=== PATIENT | male | born 1970 | race Native Hawaiian/Other Pacific Islander ===

== ENCOUNTER 2020-01-06 10:55 | Outpatient (REF) | payer OTHER, SELFPAY | END 2020-01-06 10:56 | disposition home or self-care (01) | LOC: HO.LAB 10:55 | PROVIDERS: PCP Internal Medicine; Visit Provider Internal Medicine | DX: Z20.828 Contact with and (suspected) exposure to other viral communicable diseases (principal) | CPT/HCPCS: 87635 ==

== ENCOUNTER 2020-04-27 09:52 | Emergency (ER) | payer OTHER, SELFPAY ==
[2020-04-27 10:39] VITALS: BP 183/94; PULSE 77; RESP 16; TEMP 37.1; O2SAT 98; BMI 23.6
--- NOTE | 2020-04-27 10:48 | ED_ITS ---
HPI - Eye Problem General Chief complaint: Eye Problems Stated complaint: eye swelling Time Seen by Provider: 04/27/20 10:15 Source: patient Mode of arrival: ambulatory Limitations: no limitations History of Present Illness HPI Narrative: 49-year-old male with a past medical history of hypertension and diverticulosis presenting to the ED with complaints of left lower eyelid swelling/redness/watering/pain/crusty drainage that he woke up with today. Reports when he worked at [employer] he had a boil accidentally splash into his eye and since then he had a white lump in the internal aspect of his left lower eyelid. Patient was noted to be hypertensive at 183/93 and he reports that he was started on hypertensive medications approximately 1 year ago when he was seen here for abdominal pain although never followed up with his primary care provider therefore has been without any blood pressure medication. He denies any dizziness, headaches, changes in vision, nausea/vomiting, paresthesias, palpitations, chest pain, shortness of breath, back pain any symptoms or any other symptom complaints or concerns at this time. MD chief complaint: eye pain and eye redness Onset (ago): hour(s) Onset description: gradual Duration: constant Location: left eye Eye Symptoms: redness, pain, itching and discharge Place: home Mechanism: none Severity: moderate If Pain, Quality: burning Associated symptoms: none Treatments Prior to Arrival: none Related Data Previous Rx's Medication Instructions Recorded amlodipine 5 mg PO DAILY #30 tab 04/27/20 cephalexin 500 mg PO BID 10 Days #20 cap 04/27/20 doxycycline monohydrate 100 mg PO BID 10 Days #20 cap 04/27/20 erythromycin 0.5 inch OPHTHALMIC (EYE) TID #3.5 04/27/20 g ibuprofen 800 mg PO Q8H PRN #14 tab 04/27/20 oxycodone-acetaminophen [Percocet] 1 tab PO Q6H PRN #10 tab 04/27/20 Allergies Allergy/AdvReac Type Severity Reaction Status Date / Time No Known Allergies Allergy Unverified 11/28/19 16:12 [No Known Allergies*] Review of Systems Review of Systems: Constitutional : No fevers, no chills, No changes in activity, No lethargy, No recent prior head injury, No agitation, No increased fussiness ENT/Mouth : No Ear Pain, No Nasal discharge/drainage Eyes: No Vision changes/blurry/decreased vision, + Eye Pain, + Eyelid swelling, No Swelling, No Redness, No Foreign Body, No Photophobia, no discharge, no drainage, no itching, no contact lens uses, no recent welding, no bleeding Cardiovascular : No Chest Pain, No SOB Respiratory : No Cough Gastrointestinal : No Nausea, No Vomiting, No abdominal Pain Genitourinary : No Dysuria, No Urinary Frequency, No Urinary Incontinence, No Urgency, No Flank Pain Musculoskeletal : No joint pain, No neck stiffness, No back pain/injury Skin : No lacerations Neuro : No unsteady gait, No Paresthesias, No Loss of Consciousness, No altered mental status, No dizziness, No Headache Denies past medical history of HIV, recent trauma, coagulopathy, recent spinal/ epidural procedure, new medication, URI symptoms, close contacts with similar symptoms, tick bite, or known CO2 exposure. Yes all other systems are reviewed and are negative PMFSH Past Medical History Attestation statement: The following information was validated with the patient. Medical History HTN (hypertension) Social History Social History Smoked in Last 30 Days: No Use of substances other than those prescribed or required for medical reasons: Yes Substance Use Type: Marijuana Advance Directives: Yes Advance Directives Information Provided: Yes Advance Directives on File: No Physical Exam Vital Signs: Vital Signs: Last Vital Signs Temp 98.8 F 04/27/20 10:39 Pulse 77 04/27/20 10:39 Resp 16 04/27/20 10:39 BP 183/94 H 04/27/20 10:39 Pulse Ox 98 04/27/20 10:39 Body Mass Index 23.6 vital signs have been reviewed as normal and appeared to be correct. Blood pressure normal. Heart rate normal. Respiration rate normal. Temperature normal. Oxygen saturation normal. Appearance: Alert. Oriented X3. No acute distress. Head: Normal external exam. Normocephalic. Atraumatic. No Arceo signs noted. No raccoon eyes noted Eyes: PERRLA. EOMI. Conjunctiva are normal. Cornea are normal. Funduscopic exam within normal limits. Sclera normal. Left lower eyelid internally there is noted to be a moderate size stye. Patient does have mild soft tissue swelling and erythema to left lower eyelid. Otherwise left upper eyelid within normal limits. Right upper and lower eyelids within normal limits. No papilledema noted. Anterior chamber normal. No photophobia noted. Visual acuity to right eye 20/30. Visual acuity to left eye 20/25. See nurse's notes for visual acuity. ENT: EAC normal. TM's Normal. Pharynx normal. Uvula midline. Moist mucous membranes. Neck: Normal inspection. Neck supple. FROM. No adenopathy. Thyroid Normal. No meningeal signs. No neck mass noted. CVS: Normal heart rate and rhythm. Heart sound normal. No murmurs noted. Pulses normal throughout. Respiratory: No respiratory distress. Painless inspiration. Breath sounds normal. Back: Full range of motion noted. Skin: Skin warm and dry. Normal skin color. Normal skin turgor. No rashes/lesions/lacerations noted. Extremities: No lower extremity edema. Extremities exhibit normal range of motion. Extremities nontender. Neuro: Oriented X 3. No motor deficit. No sensory deficit. Reflexes normal. Course Course Course Narrative: 49-year-old male with a past medical history of hypertension who has been untreated for over a year presenting to the ED with a stye to his left lower eyelid patient is now status post I&D of stye. Patient tolerated procedure well. No complications. Will place the patient on antibiotics and instructions to follow-up with ophthalmology Dr. Hopson. I also reviewed the patient's chart and on 11/15/2016 he was started on 5 mg of amlodipine and was supposed to follow back up with his primary care provider I am unsure if he followed up with primary care provider although reports he has not been on blood pressure medication over a year and today is noted to be hypertensive at 183/94. Denies any cardiac related complaints. Therefore will start the patient back on amlodipine 5 mg instructed follow-up with Dr. Lerner. Patient understands agrees the plan. MDM - Eye Problem Medical Records Attestation: I reviewed the patient's medical records. Discharge Plan Discharge Clinical Impression: Stye, Hypertension Patient Disposition: Home, Self-Care Instructions: Stye (ED), Heart Healthy Diet (ED), Hypertension (ED) Prescriptions: New amlodipine 5 mg tablet 5 mg PO DAILY Qty: 30 RF: 0 ibuprofen 800 mg tablet 800 mg PO Q8H PRN (Reason: pain) Qty: 14 RF: 0 oxycodone-acetaminophen [Percocet] 5-325 mg tablet 1 tab PO Q6H PRN (Reason: pain) Qty: 10 RF: 0 doxycycline monohydrate 100 mg capsule 100 mg PO BID 10 Days Qty: 20 RF: 0 cephalexin 500 mg capsule 500 mg PO BID 10 Days Qty: 20 RF: 0 erythromycin 5 mg/gram (0.5 %) ointment 0.5 inch ophthalmic (eye) TID Qty: 3.5 RF: 0 Referrals: Albino Hopson [Physician] - 2 days Eduin Lerner MD [Primary Care Provider] - 2 days Stand Alone Forms: Work/School Release Print Language: Romanian
[2020-04-27 11:07] VITALS: BP 183/94; PULSE 77
[2020-04-27] MEDS: amLODIPine Besylate 5 MG TABLET PO (11:07)
[2020-04-27] MEDS: Erythromycin Base 0.5% Oph Oin 1 GM TUBE 1 CM EYE-LEFT (11:08)
[2020-04-27] MEDS: cephALEXin 500 MG CAPSULE PO (11:08)
== END 2020-04-27 11:34 | disposition home or self-care (01) ==
PROVIDERS: Emergency Provider Emergency Medicine; PCP Internal Medicine
DX: H00.025 Hordeolum internum left lower eyelid (principal); I10 Essential (primary) hypertension
CPT/HCPCS: 99283; 99284

== ENCOUNTER 2020-07-06 04:53 | Emergency (ER) | payer OTHER, SELFPAY ==
--- NOTE | ~2020-07-06 | CT_ITS ---
EXAMINATION: CT HEAD WITHOUT CONTRAST CLINICAL INFORMATION: Fall COMPARISON: 11/13/2016 TECHNIQUE: Contiguous axial imaging was performed from the skull base to vertex without intravenous contrast. This CT examination was performed using dose optimization techniques as appropriate, variously including the following: * Automated exposure control * Adjustment of mA and/or kV according to patient size (this includes techniques or standardized protocols for targeted exams where dose is matched to indication/reason for exam; i.e. extremities or head) Use of iterative reconstruction technique DLP: 779 mGy-cm. FINDINGS: There is no evidence of acute intracranial hemorrhage or territorial infarction. No abnormal mass effect or midline shift is seen. Oliver to white matter differentiation is well preserved. No extra-axial fluid collections are identified. No hydrocephalus. No significant volume loss. There is no abnormal attenuation within the brain parenchyma. The osseous structures and soft tissues are normal. Minimal opacification in the right sphenoid sinus. The mastoid air cells and visualized portions of the paranasal sinuses are otherwise well aerated. CT/CT head/brain wo con IMPRESSION: No acute intracranial pathology.
--- NOTE | ~2020-07-06 | CT_ITS ---
EXAMINATION: CT CHEST WITHOUT CONTRAST CLINICAL INFORMATION: Right clavicular deformity. Pain. COMPARISON: 11/13/2016 TECHNIQUE: Multidetector volumetric CT imaging of the chest was done. Axial MIP volume rendering provided. Sagittal and coronal reformatted images were obtained. This CT examination was performed using dose optimization techniques as appropriate, variously including the following: *Automated exposure control *Adjustment of mA and/or kV according to patient size (this includes techniques or standardized protocols for targeted exams where dose is matched to indication/reason for exam; i.e. extremities or head) *Use of iterative reconstruction technique DLP: 456 mGy-cm FINDINGS: [employer]: Right midclavicular deformity. LUNGS: The central airways are patent. There is severe centrilobular and paraseptal emphysema. There is no focal dense consolidation. Dependent edema. Multiple nodular opacities are seen. For instance, right upper lobe 0.6 cm nodule on series 17 image 210. This is not present on prior. There is a posterior right upper lobe 0.5 cm nodule on series 17 image 197 prior. Anterior left upper lobe 0.6 cm nodule on series 17 image 229. This appears new from prior. There are multiple previous nodules which have resolved. No pneumothorax. MEDIASTINUM: Normal heart size. No pericardial effusion. No mediastinal lymphadenopathy. PLEURA: There is no pleural effusion. No pleural mass or thickening. AXILLA: No lymphadenopathy. UPPER ABDOMEN: Unremarkable. OSSEOUS STRUCTURES: There is a comminuted right midclavicular fracture. Slight posterior displacement of the distal fragment by one half shaft width. Alignment is maintained at the acromioclavicular joints and sternoclavicular joints. No scapular fracture. The ribs appear intact. CT/CT chest wo con IMPRESSION: Comminuted right midclavicular fracture with minimal displacement. Severe emphysema. Multiple pulmonary nodules are seen. These could be infectious/inflammatory in nature, given that previously seen nodules have resolved and these appear new. The largest nodules measure up to 0.6 cm. According to the UPDATED 2017 Fleischner Society recommendations, the advised follow-up imaging for multiple solid nodules, the largest measuring 6 mm or greater, is: LOW RISK PATIENT: CT at 3-6 months, then consider CT at 18-24 months. HIGH RISK PATIENT: CT at 3-6 months, then at 18-24 months.
[2020-07-06 04:58] VITALS: BP 157/81; PULSE 58; RESP 16; TEMP 37; O2SAT 96; BMI 23.6
--- NOTE | 2020-07-06 05:20 | ED_ITS ---
HPI - General Adult General Chief complaint: Fall Stated complaint: Fall Time Seen by Provider: 07/06/20 05:20 History of Present Illness HPI narrative: 49M was walking to car and slipped and fell, landing on his RIGHT shoulder and experiencing significant pain afterwards. Patient states he hit his head and denies LOC. Otherwise, he has no acute complaints. Related Data Previous Rx's Medication Instructions Recorded amlodipine 5 mg PO DAILY #30 tab 04/27/20 cephalexin 500 mg PO BID 10 Days #20 cap 04/27/20 doxycycline monohydrate 100 mg PO BID 10 Days #20 cap 04/27/20 erythromycin 0.5 inch OPHTHALMIC (EYE) TID #3.5 04/27/20 g ibuprofen 800 mg PO Q8H PRN #14 tab 04/27/20 oxycodone-acetaminophen [Percocet] 1 tab PO Q6H PRN #10 tab 04/27/20 ketorolac 10 mg PO Q6H PRN 5 Days #20 tab 07/06/20 Allergies Allergy/AdvReac Type Severity Reaction Status Date / Time No Known Allergies Allergy Unverified 11/28/19 16:12 [No Known Allergies*] Review of Systems Review of Systems: Pertinent positives and negatives as stated in HPI 10 point review of systems is otherwise negative. [facility] Past Medical History Source: nursing notes reviewed Medical History HTN (hypertension) Social History Social History Alcohol intake: current Alcohol intake frequency: a few times a week Alcohol type: beer Smoking Status: Current every day smoker Smoked in Last 30 Days: Yes Substance Use Type: Marijuana Advance Directives: No Advance Directives Information Provided: No Physical Exam Vital Signs: Vital Signs: Last Vital Signs Temp 98.6 F 07/06/20 04:58 Pulse 58 07/06/20 04:58 Resp 16 07/06/20 04:58 BP 157/81 H 07/06/20 04:58 Pulse Ox 96 07/06/20 04:58 Body Mass Index 23.6 VITAL SIGNS: Reviewed. GENERAL: Well developed, well nourished, in no acute distress. HEAD: Normocephalic/atraumatic EYES: PERRLA, EOMI NOSE: Nares patent bilateral OROPHARYNX: no oral lesions noted, posterior pharynx clear NECK: Supple, no adenopathy LUNGS: Normal breath sounds. No adventitious sounds or accessory muscle use. SpO2<96> CHEST WALL: clavicular deformity without significant tenting, ecchymosis CARDIOVASCULAR: Regular rate and rhythm without noted murmurs ABDOMEN: Soft, non-tender, non-distended with bowel sounds. 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 Course Course Course Narrative: 49-year-old male with history and clinical presentation consistent with right clavicular fracture and no evidence to suggest pneumothorax. On review of all investigations there are no acute findings other than comminuted, closed, minimally displaced right clavicular fracture. Patient was placed in a sling, given combination analgesics, discharged with a referral to Orthopedics as well as provided with a work note. Medical Decision Making Lab Data Result diagrams: 07/06/20 06:05 07/06/20 06:05 Labs: Lab Results 07/06/20 07/06/20 07/06/20 Range/Units 06:05 06:05 06:05 WBC 13.7 H (4.8-10.8) X10*3/uL RBC 4.58 L (4.60-5.80) X10*6/uL Hgb 15.6 (14.0-18.0) g/dl Hct 46.7 (42-52) % MCV 102.0 H (80-98) fL MCH 34.1 H (27.0-33.0) pg MCHC 33.4 (31.0-36.0) g/dl RDW 13.2 (11.0-16.0) % Plt Count 232 (160-400) X10*3/uL MPV 9.2 L (9.4-12.4) fL Immature Gran % (Auto) 0.6 H (0.0-0.4) % Neut % (Auto) 81.1 H (45-73) % Lymph % (Auto) 8.7 L (20-40) % [place] % (Auto) 7.7 (2-11) % Eos % (Auto) 1.7 (0-4) % Baso % (Auto) 0.2 (0-2) % Lymph # (Auto) 1.2 (1.2-4.9) X10*3/uL [place] # (Auto) 1.1 (0.1-1.2) X10*3/uL Eos # (Auto) 0.2 (0.0-0.4) X10*3/uL Baso # (Auto) 0.0 (0.0-0.2) X10*3/uL Abs Immat Gran (auto) 0.08 H (0.00-0.03) X10*3/uL Absolute Neuts (auto) 11.1 H (2.0-8.3) X10*3/uL Absolute Nucleated RBC 0.000 (0.0-0.012) X10*3/uL Nucleated RBC % (auto) 0.0 (0.0-0.2) /100WBC PT 11.2 (10.8-13.0) SEC INR 0.9 (0.9-1.1) Sodium 142 (135-145) mmol/L Potassium 4.2 (3.3-5.1) mmol/L Chloride 107 (96-108) mmol/L Carbon Dioxide 27 (22-29) mmol/L Anion Gap 12 (12-20) BUN 11 (9-16) mg/dL Creatinine 0.77 (0.5-1.4) mg/dL Estim Creat Clear Calc 117.3 Estimated GFR > 60 Random Glucose 81 (60-115) mg/dL Calcium 9.5 (8.4-10.2) mg/dL Total Bilirubin 0.4 (0.0-1.0) mg/dL AST 17 (5-37) U/L ALT 15 (0-40) U/L Alkaline Phosphatase 65 (39-117) U/L Total Protein 6.6 (6.5-8.0) g/dL Albumin 4.0 (3.5-5.0) g/dL Discharge Plan Discharge Clinical Impression: Closed fracture of right clavicle Patient Disposition: Home, Self-Care Instructions: Clavicle Fracture (ED), How to Use a Sling (ED) Additional Instructions: 1. Tylenol 1000 mg, orally, every 6 hours as needed for pain control. Do not exceed 4000 mg within 24 hours. 2. Application of ice to unexposed skin, 5-10 minutes, 3 to 4 times a day. 3. Follow-up with Orthopedics, the referral is provided to below. Return to the emergency department for any acute worsening of your symptoms. Prescriptions: New ketorolac 10 mg tablet 10 mg PO Q6H PRN (Reason: pain) 5 Days Qty: 20 RF: 0 No Action amlodipine 5 mg tablet 5 mg PO DAILY Qty: 30 RF: 0 ibuprofen 800 mg tablet 800 mg PO Q8H PRN (Reason: pain) Qty: 14 RF: 0 oxycodone-acetaminophen [Percocet] 5-325 mg tablet 1 tab PO Q6H PRN (Reason: pain) Qty: 10 RF: 0 doxycycline monohydrate 100 mg capsule 100 mg PO BID 10 Days Qty: 20 RF: 0 cephalexin 500 mg capsule 500 mg PO BID 10 Days Qty: 20 RF: 0 erythromycin 5 mg/gram (0.5 %) ointment 0.5 inch ophthalmic (eye) TID Qty: 3.5 RF: 0 Referrals: Abram Henriquez MD [Physician] - 2 days (Evaluation treatment for right, closed, comminuted fracture with minimal displacement.) Physician,Unknown [Primary Care Provider] - 2 days Stand Alone Forms: Work/School Release
[2020-07-06] MEDS: Ketorolac Tromethamine 15 MG/ML VIAL IVPUSH (05:37)
--- NOTE | 2020-07-06 05:40 | PC.NURSE ---
pt brought to ED by EMS from home after a fall. pt alert and oriented x3, eye contact and verbal response appropriate for setting. lung sounds clear bilaterally. vital signs wnl. pt states he tripped and had his hands in his pockets and was unable to catch his fall so he turned his body and landed on his right side/shoulder. pt unsure if he lost consciousness but states he hit the right side of his head on the ground. pt able to squeeze nurses fingers bilaterally, neuro assessment intact, PERRLA, no ear drainage noted, no blood or abrasions noted on head. pt has no ROM on right arm at this time. upon visual inspection, clavicles do not appear symmetrical, right clavicle has visible bump. pt off to CT
--- NOTE | 2020-07-06 05:56 | PC.NURSE ---
pt back from CT
[2020-07-06 06:12] LABS: Basophils Percent Auto 0.2 % (0-2); Eosinophils Absolute Auto 0.2 X10*3/uL (0.0-0.4); Eosinophils Percent Auto 1.7 % (0-4); Hematocrit 46.7 % (42-52); Hemoglobin 15.6 g/dl (14.0-18.0); Imm Gran Abs Auto 0.08 X10*3/uL (0.00-0.03); Imm Gran Pct Auto 0.6 % (0.0-0.4); Lymphocytes Absolute Auto 1.2 X10*3/uL (1.2-4.9); Lymphocytes Percent Auto 8.7 % (20-40); MANUAL DIFF FLAG NO; Mean Corpuscular HGB Conc 33.4 g/dl (31.0-36.0); Mean Corpuscular Hemoglobin 34.1 pg (27.0-33.0); Mean Platelet Volume 9.2 fL (9.4-12.4); Monocytes Absolute Auto 1.1 X10*3/uL (0.1-1.2); Monocytes Percent Auto 7.7 % (2-11); Neutrophils Absolute Auto 11.1 X10*3/uL (2.0-8.3); Neutrophils Percent Auto 81.1 % (45-73); Platelet Count 232 X10*3/uL (160-400); Red Blood Count 4.58 X10*6/uL (4.60-5.80); Red Cell Distribution Width 13.2 % (11.0-16.0); White Blood Count 13.7 X10*3/uL (4.8-10.8)
[2020-07-06 06:17] LABS: INTERNATIONAL NORM RATIO 0.9 (0.9-1.1); Prothrombin Time 11.2 SEC (10.8-13.0)
[2020-07-06 06:34] LABS: Alanine Aminotransferase 15 U/L (0-40); Alkaline Phosphatase 65 U/L (39-117); Anion Gap 12 (12-20); Aspartate Amino Transferase 17 U/L (5-37); Bilirubin Total 0.4 mg/dL (0.0-1.0); Blood Urea Nitrogen 11 mg/dL (9-16); Calcium 9.5 mg/dL (8.4-10.2); Carbon Dioxide 27 mmol/L (22-29); Chloride 107 mmol/L (96-108); Creatinine Clr Calc Pharmacy 117.3; Estimated Glomerular Filt Rate > 60; Glucose Random 81 mg/dL (60-115); Potassium 4.2 mmol/L (3.3-5.1); Sodium 142 mmol/L (135-145); Total Protein 6.6 g/dL (6.5-8.0)
[2020-07-06] MEDS: oxyCODONE HCl Immed Release 5 MG TABLET 10 MG PO (08:07)
== END 2020-07-06 08:15 | disposition home or self-care (01) ==
PROVIDERS: Emergency Provider Student in an Organized Health Care Education/Training Program
DX: S42.001A Fracture of unspecified part of right clavicle, initial encounter for closed fracture (principal); M25.511 Pain in right shoulder; W01.0XXA Fall on same level from slipping, tripping and stumbling without subsequent striking against object, initial encounter; Y93.9 Activity, unspecified; Y92.9 Unspecified place or not applicable; Y99.9 Unspecified external cause status; Z79.899 Other long term (current) drug therapy
CPT/HCPCS: 36415; 70450; 71250; 80053; 85025; 85610; 96374; 99284; J1885

== ENCOUNTER 2020-07-13 06:04 | Outpatient (REF) | payer OTHER, SELFPAY ==
--- NOTE | ~2020-07-13 | XR_ITS ---
EXAMINATION: XR CLAVICLE, RIGHT CLINICAL INFORMATION: Right clavicle fracture COMPARISON: Previous right shoulder x-ray February 2016 TECHNIQUE: 2 of the right clavicle. FINDINGS: There is a comminuted displaced right clavicle fracture new from 2016. There is a 2.5 to 3 cm superior displacement of the proximal clavicle with respect to the distal clavicle. No other fracture is seen. There is mild overlying soft tissue swelling. The right lung apex is clear. XR/XR clavicle RT IMPRESSION: Comminuted displaced right mid clavicle fracture.
== END 2020-07-13 06:05 | disposition home or self-care (01) ==
LOC: HO.HOSX 06:04
PROVIDERS: Visit Provider Physician Assistant
DX: S42.001A Fracture of unspecified part of right clavicle, initial encounter for closed fracture (principal); M89.8X1 Other specified disorders of bone, shoulder; F17.210 Nicotine dependence, cigarettes, uncomplicated; Z71.6 Tobacco abuse counseling
CPT/HCPCS: 73000; 99202

== ENCOUNTER 2020-07-15 08:34 | Day surgery (SDC) | payer OTHER, SELFPAY ==
--- NOTE | 2020-07-14 08:55 | HO.ANESPROP2 ---
Documented by User: Lynn Pollard 07/14/20 08:57 HPI - Anesthesia Eval Consult details Narrative: 49yo M for Right Clavicle ORIF prn opioids PMFSH Active Problems Active Problems: All Active Problems (Updated 07/13/20 @ 09:26 by Loida Duong PA-C) Smoking 1/2 pack a day or less (Acute) Right clavicle fracture (Acute) Clavicle pain (Acute) HTN (hypertension) (Acute) Past Medical History Medical History HTN (hypertension) Smoking 1/2 pack a day or less Social History Social History Alcohol intake: current Alcohol intake frequency: a few times a week Alcohol type: beer Smoking Status: Current every day smoker Substance Use Type: Marijuana Advance Directives: No Advance Directives Information Provided: Yes Current occupation: right handed. Meds Allergies Allergy/AdvReac Type Severity Reaction Status Date / Time No Known Allergies Allergy Unverified 07/13/20 09:02 [No Known Allergies*] Exam Exam Date and Time: July 14, 2020 0855 Pertinent Lab Results Pertinent Lab Results: Laboratory Tests 07/06/20 07/06/20 06:05 06:05 WBC 13.7 H Hgb 15.6 Hct 46.7 Plt Count 232 Sodium 142 Potassium 4.2 Chloride 107 Carbon Dioxide 27 BUN 11 Creatinine 0.77 Narrative Narrative: ECHO 2017: wnl Assessment and Plan Assessment Anesthesia Assessment: Chart Reviewed Documented by User: Lindsay Gaytan 07/15/20 09:23 PMFSH Past Medical History Medical History HTN (hypertension) Smoking 1/2 pack a day or less Social History Social History Alcohol intake: current Alcohol intake frequency: a few times a week Alcohol type: beer Smoking Status: Current every day smoker Substance Use Type: Marijuana Advance Directives: No Advance Directives Information Provided: Yes Current occupation: right handed. Meds Allergies Allergy/AdvReac Type Severity Reaction Status Date / Time No Known Allergies Allergy Unverified 07/13/20 09:02 [No Known Allergies*] Exam Airway Mallampati Class: II TM Dist: >3cm Neck ROM: Full Assessment and Plan Assessment Anesthesia Assessment: Anesthesia Plan Discussed and Chart Reviewed Final Anesthetic Review NPO: Yes ASA Class: II Final Preanesthetic Review: No Changes in Pt Med Stat, Meds/Allgs Chart Reviewed, Consent Obtained/Reviewed and Anes Risks/Benef Reviewed Patient Risk: Low Procedure Risk: Low Assessment/Block/Sedation in SS: Assess/Block/Sedation-SS Anesthetic Plan Anesthetic Plan: GA Disposition: Standard PACU
[2020-07-15] VITALS (11 sets, daily range): BP systolic 102–166; BP diastolic 58–99; PULSE 70–87; RESP 16–18; TEMP 36.1–36.7; O2SAT 94–99; BMI 23.6
--- NOTE | ~2020-07-15 | FL_ITS ---
EXAMINATION: XR FLUOROSCOPY WITH IMAGES CLINICAL INFORMATION: Right clavicular ORIF COMPARISON: 07/13/2020 TECHNIQUE: Fluoroscopy performed by Dr. Abram Henriquez. Fluoroscopy time: 7 1 minutes DAP: 0.0219 mGycm2 Images: 1 FL/FL guidance in OR FINDINGS/IMPRESSION: Images demonstrate a plate and screws transfixing a right mid clavicular diaphyseal fracture. Fracture fragments in near anatomic alignment. Please see operative report.
[2020-07-15] MEDS: Lactated Ringers 1,000 ML 100 ML IVCONT (09:30)
--- NOTE | 2020-07-15 09:31 | MHC.SHP ---
Pre-Procedural Eval Section A The patient is an INPATIENT: No Changes since office visit: Yes Patient answered all questions; No Cold of Flu in the past 2 weeks, No New Medical Problems and No Changes in Medication The History & Physical has been completed within 30 days and I have reviewed it.: Yes Section B Chief Complaint: clavicle fx Allergies: Allergies Allergy/AdvReac Type Severity Reaction Status Date / Time No Known Allergies Allergy Unverified 07/13/20 09:02 [No Known Allergies*] Plan I have reviewed the history and physical and performed a pertinent physical examination on my patient. No changes have occurred unless specified.
--- NOTE | 2020-07-15 12:08 | P.OP_ITS ---
Operative Note Operative Note Date of Service: 07/15/20 Narrative: Date of Service: 07/15/20 Pre-op diagnosis: right clavicle fracture Post-op diagnosis: same Procedure: ORIF right clavicle Implants: [place] superior clavicle plate Surgeon: Abram Henriquez MD Anesthesia: GETA Was an Supervisor Boiler Repair used for this Procedure?: No Supervisor Boiler Repair: Loida Duong Estimated blood loss (mL): 25 IV fluids (mL): 1,000 Pathology: none sent Condition: stable Disposition: PACU Procedure in detail: Patient was brought to the operating room and placed in the beach chair position. He was prepped and draped in standard sterile fashion and a time out was called to identify proper site, proper procedure and IV antibiotics per weight were administered. I began by making curvelinear incision over the right clavicle. Littler's scissors were used to dissect through the fascia and abundant callous was encountered. I then used a combination of irrigation and rongeur to identify the fracture fragments. There were two comminuted fragments. I used lobster claw tenaculum to reduce the pieces and used a total of 3 A to P lag screws the maintain reduction. I then selected a 10 hole bridging plate. Standard AO technique was used to place 6 cortices proximal to the fracture. Two additional unicortical non locking screws were placed. The fracture was reduced and the plate was on bone. Biplanar fluroscopy was used to confirm plate placement and fracture reduction. I then irrigated copiously and closed with subcuticular absorbable suture and subcuticular prolene. Patient was placed in sterile dressing and a sling. He was extubated and brought to the recovery room is stable condition. There were no known complications.
== END 2020-07-15 14:55 | disposition home or self-care (01) ==
PROVIDERS: Visit Provider Orthopaedic Surgery
PROC: (CPT 23515; principal; 2020-07-15 10:20)
DX: S42.001A Fracture of unspecified part of right clavicle, initial encounter for closed fracture (principal); X58.XXXA Exposure to other specified factors, initial encounter; Y93.9 Activity, unspecified; Y92.9 Unspecified place or not applicable; Y99.8 Other external cause status; I10 Essential (primary) hypertension; F12.90 Cannabis use, unspecified, uncomplicated; F17.210 Nicotine dependence, cigarettes, uncomplicated; Z79.899 Other long term (current) drug therapy
CPT/HCPCS: 23515; C1713; J0690; J1100; J1885; J2250; J2405; J3010

== ENCOUNTER 2020-07-27 07:27 | Outpatient (REF) | payer OTHER, SELFPAY ==
--- NOTE | ~2020-07-27 | XR_ITS ---
EXAMINATION: XR CLAVICLE, RIGHT CLINICAL INFORMATION: Right clavicle COMPARISON: None TECHNIQUE: Two views of the right clavicle. FINDINGS: There is a plate and screws stabilizing a mid clavicular fracture. The fracture fragments are in alignment with callus formation visualized. XR/XR clavicle RT IMPRESSION: Status post ORIF right clavicle with callus formation suggestive of healing fracture. No major change compared to last exam 07/13/2020
== END 2020-07-27 07:28 | disposition home or self-care (01) ==
LOC: HO.HOSX 07:27
PROVIDERS: Visit Provider Physician Assistant
DX: S42.001D Fracture of unspecified part of right clavicle, subsequent encounter for fracture with routine healing (principal)
CPT/HCPCS: 73000; 99212

== ENCOUNTER 2020-08-24 08:13 | Outpatient (REF) | payer OTHER, SELFPAY ==
--- NOTE | ~2020-08-24 | XR_ITS ---
EXAMINATION: XR CLAVICLE, RIGHT CLINICAL INFORMATION: Right clavicle fracture COMPARISON: Previous x-rays most recent 07/28/2019 TECHNIQUE: 2 of the right clavicle. FINDINGS: There is a plate and screws transfixing the right clavicle fracture. The medial end of the plate may have backed out slightly compared to previous exam. Fracture line appears indistinct suggestive of evidence of healing. Alignment is unchanged. Soft tissues are unremarkable. XR/XR clavicle RT IMPRESSION: ORIF of right clavicle fracture. The medial end plate may have backed out slightly compared to previous exams.
== END 2020-08-24 08:14 | disposition home or self-care (01) ==
LOC: HO.HOSX 08:13
PROVIDERS: Visit Provider Orthopaedic Surgery
DX: Z98.890 Other specified postprocedural states (principal); Z87.81 Personal history of (healed) traumatic fracture
CPT/HCPCS: 73000; 99212

== ENCOUNTER 2020-09-24 07:51 | Outpatient (REF) | payer OTHER, SELFPAY | END 2020-09-24 07:52 | disposition home or self-care (01) | LOC: HO.HOSX 07:51 | PROVIDERS: Visit Provider Orthopaedic Surgery | DX: Z13.89 Encounter for screening for other disorder (principal) ==

== ENCOUNTER 2020-10-05 12:11 | Outpatient (REF) | payer OTHER, SELFPAY ==
--- NOTE | ~2020-10-05 | XR_ITS ---
EXAMINATION: XR CLAVICLE, RIGHT CLINICAL INFORMATION: Follow-up fracture COMPARISON: Previous x-rays most recent July 2020 TECHNIQUE: 2 of the right clavicle. FINDINGS: There is a plate and screws transfixing the right mid clavicle fracture. Orthopedic hardware appears unchanged. The medial sideplate may have backed out compared to placement images July 2020 but appears unchanged. Fracture line appears more indistinct suggestive of evidence of healing. Soft tissues are unremarkable. XR/XR clavicle RT IMPRESSION: Healing right clavicle fracture.
== END 2020-10-05 12:12 | disposition home or self-care (01) ==
LOC: HO.HOSX 12:11
PROVIDERS: Visit Provider Orthopaedic Surgery
DX: Z98.890 Other specified postprocedural states (principal); Z87.81 Personal history of (healed) traumatic fracture
CPT/HCPCS: 73000; 99212

== ENCOUNTER 2021-01-24 12:03 | Emergency (ER) | payer OTHER, SELFPAY ==
[2021-01-24 12:17] VITALS: BP 174/109; PULSE 89; RESP 18; TEMP 36.9; O2SAT 97; BMI 25.1
[2021-01-24 13:39] VITALS: BP 177/116; PULSE 76; RESP 18; TEMP 37.1; O2SAT 95
--- NOTE | 2021-01-24 13:40 | ED_ITS ---
HPI - Eye Problem General Chief complaint: Eye Problems Stated complaint: r eye swollen no known inj Time Seen by Provider: 01/24/21 13:22 Source: patient Mode of arrival: ambulatory History of Present Illness HPI Narrative: 50-year-old male with past medical history of HTN, cigarette smoking, presenting to the ED complaining of swollen right upper eyelid x 2-3 days. Reports tearing/crusting noted from eye noted this morning. Denies tr auma/fall or injury, vision change/loss, pain with EOMs, ear pain, throat pain, foreign body sensation, headache. Does not wear glasses or contacts. Patient reports did not take his antihypertensives this morning, does not know what he takes MD chief complaint: eye pain and eye redness Related Data Home Medications Medication Instructions Recorded Confirmed oxycodone-acetaminophen 5 mg-325 1 tab PO PRN 07/27/20 mg tablet ketorolac 10 mg tablet 10 mg PO Q6H PRN 08/24/20 Previous Rx's Medication Instructions Recorded amlodipine 5 mg tablet 5 mg PO DAILY #30 tab 04/27/20 cephalexin 500 mg capsule 500 mg PO BID 10 Days #20 cap 04/27/20 doxycycline monohydrate 100 mg 100 mg PO BID 10 Days #20 cap 04/27/20 capsule erythromycin 5 mg/gram (0.5 %) eye 0.5 inch OPHTHALMIC (EYE) TID #3.5 04/27/20 ointment g ibuprofen 800 mg tablet 800 mg PO Q8H PRN #14 tab 04/27/20 hydrocodone 5 mg-acetaminophen 325 1 tab PO Q12H PRN 7 Days #14 tab 07/27/20 mg tablet amlodipine 5 mg tablet 5 mg PO DAILY #30 tab 01/24/21 amoxicillin 875 mg-potassium 1 tab PO Q12H 7 Days #14 tab 01/24/21 clavulanate 125 mg tablet (Augmentin) cetirizine 10 mg tablet (Zyrtec) 10 mg PO DAILY PRN #10 tab 01/24/21 erythromycin 5 mg/gram (0.5 %) eye 1 appl OPHTHALMIC-RIGHT QID 7 Days 01/24/21 ointment #3.5 g Allergies Allergy/AdvReac Type Severity Reaction Status Date / Time No Known Allergies Allergy Unverified 08/24/20 11:32 [No Known Allergies*] Review of Systems Review of Systems: Constitutional: No Fever, No Chills ENT/Mouth: No Ear Pain, No Nasal Congestion, No Sinus Pain, No sore throat, No Rhinorrhea, No Swallowing Difficulty Eyes: No Eye Pain, + Swelling, + Redness, No Foreign Body, + Discharge, No Vision Changes Cardiovascular: No Chest Pain, No SOB Respiratory: No Cough Gastrointestinal: No Nausea, No Vomiting, No Abdominal pain Genitourinary: No Dysuria, No Urinary Frequency, No Hematuria Musculoskeletal: No joint pain, No Myalgias, No Joint Swelling Skin: No Skin Lesions, No rash Neuro: No Weakness, No Numbness, No Paresthesias Yes all other systems are reviewed and are negative [facility] Past Medical History Attestation statement: The following information was validated with the patient. Medical History HTN (hypertension) Smoking 1/2 pack a day or less Social History Social History Alcohol intake: current Alcohol intake frequency: a few times a week Alcohol type: beer Cigarettes Per Day: 7 Substance Use Type: Marijuana Advance Directives: No Advance Directives Information Provided: No Current occupation: right handed. Physical Exam Vital Signs: Vital Signs: Last Vital Signs Temp 98.7 F 01/24/21 13:39 Pulse 78 01/24/21 14:07 Resp 18 01/24/21 13:39 BP 160/99 H 01/24/21 14:59 Pulse Ox 95 01/24/21 13:39 Body Mass Index 25.1 Const: General: cooperative, healthy appearing and no acute distress Orientation/consciousness: patient oriented x3 Limitations: no limitations HENMT: Head: Yes normal to inspection Ears: hearing grossly normal bilaterally General nose exam: Normal external nose present Face and sinus: Yes normal facial exam Eyes: Other: Right upper eyelid with noted swelling and slight erythema. Mildly tender to palpation. Not warm Conjunctivae: conjunctivae normal Sclerae: sclerae normal Corneas: corneas normal Pupils: Equal, round and reactive pupils present EOM: EOMs intact bilaterally (EOMs intact without pain) Direct Ophthalmoscopy: normal light reflex and no photophobia Neck: Neck: Yes normal visual inspection and Yes no meningeal signs Resp: Effort & Inspection: normal respiratory effort and no respiratory distress Cardio: Rate: regular rate Skin: Rashes: no rashes Wounds: no wounds Neuro: General: patient oriented x3 and no meningeal signs Cranial nerves: Yes Equal, round and reactive pupils present Gait exam (Neuro): Normal gait present Extrem: General: Yes normal to inspection Course Course Course Narrative: -patient is hypertensive 177/116, reports noncompliance with antihypertensives, per pharmacy last picked up Amlodipine in April. Denies headache, lightheadedness, CP. Will give dose here and reassess -patient's blood pressure improved to 160/99 after p.o. amlodipine. Discussed with him the importance of compliance with medications and PCP follow-up MDM - Eye Problem MDM Narrative Medical decision making narrative: 50-year-old male with past medical history of HTN, cigarette smoking, presenting to the ED complaining of swollen right upper eyelid times 2-3 days. Reports tearing/crusting noted from eye noted this morning. On exam hypertensive, NAD/nontoxic, physical exam as above noted right upper eyelid swelling with slight erythema, EOMs intact without pain, no appreciable crusting, conjunctiva wnl. Concern for preseptal cellulitis vs conjunctivitis allergic or bacterial. Low concern for orbital cellulitis without pain with EOMs/visual changes. Low concern for FB/corneal abrasion Will DC patient home with p.o. Augmentin, erythromycin ointment and Zyrtec. Discussed worrisome signs and symptoms, strict return precautions and need follow-up with PCP Medical Records Attestation: I reviewed the patient's medical records. Lab Data Attestation: I reviewed the patient's lab results. Discharge Plan Discharge Clinical Impression: Preseptal cellulitis of right upper eyelid Conjunctivitis Qualifiers: Conjunctivitis type: acute Acute conjunctivitis type: unspecified Laterality: right Qualified Code(s): H10.31 - Unspecified acute conjunctivitis, right eye Patient Disposition: Home, Self-Care Instructions: Periorbital Cellulitis in Adults (ED), Conjunctivitis (ED) Additional Instructions: Augmentin is an antibiotic, take as prescribed for possible skin infection of her upper eyelid Erythromycin ointment will treat conjunctivitis Zyrtec as an antihistamine which will help with eye itching/allergic symptoms You may also take Benadryl however this will make you drowsy YOU NEED TO TAKE YOUR BLOOD PRESSURE MEDICATIONS, AN ADDITIONAL SCRIPT FOR RENEWAL BLOOD PRESSURE MEDICATIONS WAS SENT TO THE PHARMACY. FOLLOW UP WITH HER PRIMARY CARE DOCTOR FOR THIS MATTER. HER BLOOD PRESSURE BEING HIGH IT WAS TODAY IN THE ED PUT YOU AT RISK OF STROKE AND HEART ATTACK Please follow-up with her doctor He for symptoms persist or worsen, you have persistent or worsening swelling, develops vision change or loss, fever/chills please return to the ED Prescriptions: New amoxicillin-pot clavulanate [Augmentin] 875-125 mg tablet 1 tab PO Q12H 7 Days Qty: 14 RF: 0 erythromycin 5 mg/gram (0.5 %) ointment 1 appl ophthalmic-Right QID 7 Days Qty: 3.5 RF: 0 cetirizine [Zyrtec] 10 mg tablet 10 mg PO DAILY PRN (Reason: allergy symptoms) Qty: 10 RF: 0 amlodipine 5 mg tablet 5 mg PO DAILY Qty: 30 RF: 0 No Action amlodipine 5 mg tablet 5 mg PO DAILY Qty: 30 RF: 0 ibuprofen 800 mg tablet 800 mg PO Q8H PRN (Reason: pain) Qty: 14 RF: 0 doxycycline monohydrate 100 mg capsule 100 mg PO BID 10 Days Qty: 20 RF: 0 cephalexin 500 mg capsule 500 mg PO BID 10 Days Qty: 20 RF: 0 erythromycin 5 mg/gram (0.5 %) ointment 0.5 inch ophthalmic (eye) TID Qty: 3.5 RF: 0 oxycodone-acetaminophen 5-325 mg tablet 1 tab PO PRNRF: 0 hydrocodone-acetaminophen 5-325 mg tablet 1 tab PO Q12H PRN (Reason: pain (scale score 4-6)) 7 Days Qty: 14 RF: 0 ketorolac 10 mg tablet 10 mg PO Q6H PRNRF: 0 Referrals: Renzo Raman MD [Primary Care Provider] - 2 days
[2021-01-24 14:07] VITALS: BP 177/116; PULSE 78
[2021-01-24] MEDS: amLODIPine Besylate 5 MG TABLET PO (14:07)
[2021-01-24 14:59] VITALS: BP 160/99
== END 2021-01-24 15:22 | disposition home or self-care (01) ==
PROVIDERS: Emergency Provider Emergency Medicine; PCP Pediatrics
DX: H00.031 Abscess of right upper eyelid (principal); H10.31 Unspecified acute conjunctivitis, right eye; I10 Essential (primary) hypertension; F17.210 Nicotine dependence, cigarettes, uncomplicated; Z91.14 Patient's other noncompliance with medication regimen
CPT/HCPCS: 99283; 99284

== ENCOUNTER 2021-09-07 05:29 | Day surgery (SDC) | payer OTHER, SELFPAY ==
[2021-09-07] VITALS (12 sets, daily range): BP systolic 154–181; BP diastolic 93–107; PULSE 58–94; RESP 14–20; TEMP 36.6–37; O2SAT 93–98; BMI 24.9
--- NOTE | ~2021-09-07 | CT_ITS ---
EXAMINATION: CT ABDOMEN AND PELVIS WITH CONTRAST CLINICAL INFORMATION: Rectal pain. COMPARISON: November 13, 2016. TECHNIQUE: Multidetector volumetric images were obtained from the superior aspect of the liver through the pubic symphysis following administration 85 mL of Omnipaque 350 intravenous contrast. Sagittal and coronal reformatted images were obtained on the technologist's workstation. Oral contrast: No This CT examination was performed using dose optimization techniques as appropriate, variously including the following: *Automated exposure control *Adjustment of mA and/or kV according to patient size (this includes techniques or standardized protocols for targeted exams where dose is matched to indication/reason for exam; i.e. extremities or head) *Use of iterative reconstruction technique DLP: 502 mGy-cm FINDINGS: LUNG BASES: The visualized lung bases appear unremarkable. LIVER, GALLBLADDER, AND BILIARY TREE: The liver appears unremarkable in size, shape, and attenuation. No focal hepatic lesion or biliary ductal dilatation is appreciated. Unremarkable appearance of the gallbladder. PANCREAS: Unremarkable. SPLEEN: Unremarkable. ADRENAL GLANDS: Unremarkable. KIDNEYS AND URETERS: Subcentimeter benign left simple renal cysts. The kidneys otherwise appear unremarkable in size, shape, and attenuation. No hydronephrosis, hydroureter, or calculi seen. BLADDER: Unremarkable. GASTROINTESTINAL TRACT: Approximately 3.7 x 3.6 x 3.2 cm structure contiguous with the anorectal confluence posteriorly toward the left (image 81, series 3). The wall of this structure measures approximately 0.8 cm in thickness, and the central, fluid-containing portion is approximately 2.2 x 2.1 x 2.0 cm. Mild induration of surrounding fat. The small and large bowel otherwiseappear unremarkable. ABDOMINAL WALL: No significant hernia is appreciated. LYMPH NODES: Normal. VASCULAR: Unremarkable. PELVIC VISCERA: Unremarkable. OSSEOUS STRUCTURES: Unremarkable. CT/CT abdomen pelvis w con IMPRESSION: Approximately 3.7 x 3.6 x 3.2 cm structure contiguous with the anorectal confluence posteriorly toward the left, as detailed above. Differential diagnosis includes, but is not limited to, perirectal abscess. Recommend clinical correlation and follow-up to resolution after an appropriate course of therapy has been completed.
--- NOTE | 2021-09-07 06:32 | ED.SKABFB ---
HPI - Skin/Abscess/Foreign Bdy General Chief complaint: Skin/Abscess/Foreign Body Stated complaint: gen med Time Seen by Provider: 09/07/21 06:32 Source: patient Mode of arrival: ambulatory Limitations: no limitations History of Present Illness MD complaint: abscess/boil and lesion Onset (ago): day(s) (4) Tetanus up to date: yes Location: buttocks Severity: severe Quality: aching Pain Consistency: constant Relieving factors: immobilization Exacerbating factors: palpation and movement Context: none Associated symptoms: denies other symptoms Treatments prior to arrival: none Related Data Home Medications Medication Instructions Recorded Confirmed oxycodone-acetaminophen 5 mg-325 1 tab PO PRN 07/27/20 mg tablet ketorolac 10 mg tablet 10 mg PO Q6H PRN 08/24/20 Previous Rx's Medication Instructions Recorded amlodipine 5 mg tablet 5 mg PO DAILY hypertension #30 tabs 04/27/20 cephalexin 500 mg capsule 500 mg PO BID 10 days #20 caps 04/27/20 doxycycline monohydrate 100 mg 100 mg PO BID 10 days #20 caps 04/27/20 capsule erythromycin 5 mg/gram (0.5 %) eye 0.5 inch ophthalmic (eye) TID stye 04/27/20 ointment #3.5 grams ibuprofen 800 mg tablet 800 mg PO Q8H PRN pain #14 tabs 04/27/20 hydrocodone 5 mg-acetaminophen 325 1 tab PO Q12H PRN pain (scale 07/27/20 mg tablet score 4-6) 7 days #14 tabs amlodipine 5 mg tablet 5 mg PO DAILY #30 tabs 01/24/21 amoxicillin 875 mg-potassium 1 tab PO Q12H 7 days #14 tabs 01/24/21 clavulanate 125 mg tablet (Augmentin) cetirizine 10 mg tablet (Zyrtec) 10 mg PO DAILY PRN allergy 01/24/21 symptoms #10 tabs erythromycin 5 mg/gram (0.5 %) eye 1 appl ophthalmic-Right QID 7 days 01/24/21 ointment #3.5 grams Allergies Allergy/AdvReac Type Severity Reaction Status Date / Time No Known Allergies Allergy Verified 09/07/21 05:50 [No Known Allergies*] Review of Systems Review of Systems: Constitutional : No Fever, No Chills ENT/Mouth : No sore throat, No Rhinorrhea Eyes: No Eye Pain, No Swelling, No Redness Cardiovascular : No Chest Pain, No SOB Respiratory : No Cough, No Sputum Gastrointestinal : No Nausea, No Vomiting, No Diarrhea, No abdominal Pain, pos rectal pain Genitourinary : No Dysuria, No Hematuria Musculoskeletal : No joint pain, No Myalgias, No Joint Swelling Skin : pos Skin Lesions,no skin rash Neuro : No Weakness, No Numbness, No Headache Psych : No Anxiety, No Depression Heme/Lymph: No Bruising, No Bleeding,No Lymphadenopathy Endocrine : No Polyuria, No Polydipsia All other systems reviewed and are negative [facility] Past Medical History Medical History HTN (hypertension) Smoking 1/2 pack a day or less Social History Social History Alcohol intake: current Alcohol intake frequency: holidays/special occasions only Alcohol type: beer Patient Tobacco Use Status: Never used Tobacco Cigarettes Per Day: 7 Use of substances other than those prescribed or required for medical reasons: No Substance Use Type: Marijuana Advance Directives: No Current occupation: right handed. Physical Exam Vital Signs: Vital Signs: Last Vital Signs Temp 97.8 F 09/07/21 07:00 Pulse 58 09/07/21 09:40 Resp 14 09/07/21 09:40 BP 161/94 H 09/07/21 09:40 Pulse Ox 96 09/07/21 09:40 O2 Del Method 09/07/21 09:40 BMI result Body Mass Index 24.9 Appearance: Alert. Oriented X3. No acute distress. Eyes: Pupils equal, round and reactive to light. ENT: Pharynx normal. Neck: Normal inspection. Neck supple. CVS: Normal heart rate and rhythm. Pulses normal. Respiratory: No respiratory distress. Breath sounds normal. Abdomen: Soft and nontender. Rectal: R side of rectum hard firm internal ball felt with moderate ttp and fluctuance noted seems consistent with abscess and not thrombosed hemorrhoid Skin: Skin warm and dry. Normal skin color. Normal skin turgor. Extremities: No lower extremity edema. No calf ttp Neuro: Oriented X 3. No motor deficit. No sensory deficit. Course Course Course Narrative: notified surgery given perirectal abscess Dr. Ohara to take to OR MDM - Skin/Abscess/Foreign Bdy MDM Narrative Medical decision making narrative: 50 yo male with HTN not a diabetic here with rectal mass ?abscess that goes internal x 4 days. At this time will obtain labs, IV morphine for pain, CT scan for evaluation of the area. Dispo per results and findings. Lab Data Result diagrams: 09/07/21 07:48 09/07/21 07:48 Labs: Lab Results 09/07/21 09/07/21 09/07/21 Range/Units 07:48 07:48 07:48 WBC 13.2 H (4.8-10.8) X10*3/uL RBC 4.65 (4.60-5.80) X10*6/uL Hgb 15.3 (14.0-18.0) g/dl Hct 46.3 (42.0-52.0) % MCV 99.6 H (80.0-98.0) fL MCH 32.9 (27.0-33.0) pg MCHC 33.0 (31.0-36.0) g/dl RDW 13.2 (11.0-16.0) % Plt Count 251 (160-400) X10*3/uL MPV 9.4 (9.4-12.4) fL Immature Gran % (Auto) 0.5 H (0.0-0.4) % Neut % (Auto) 84.6 H (45-73) % Lymph % (Auto) 7.3 L (20-40) % [place] % (Auto) 7.0 (2-11) % Eos % (Auto) 0.3 (0-4) % Baso % (Auto) 0.3 (0-2) % Lymph # (Auto) 1.0 L (1.2-4.9) X10*3/uL [place] # (Auto) 0.9 (0.1-1.2) X10*3/uL Eos # (Auto) 0.0 (0.0-0.4) X10*3/uL Baso # (Auto) 0.0 (0.0-0.2) X10*3/uL Abs Immat Gran (auto) 0.07 H (0.00-0.03) X10*3/uL Absolute Neuts (auto) 11.2 H (2.0-8.3) x10*3/uL Absolute Nucleated RBC 0.000 (0.0-0.012) X10*3/uL Nucleated RBC % (auto) 0.0 (0.0-0.2) /100WBC Sodium 140 (135-145) mmol/L Potassium 4.2 (3.3-5.1) mmol/L Chloride 108 (96-108) mmol/L Carbon Dioxide 23 (22-29) mmol/L Anion Gap 13 (12-20) BUN 11 (9-16) mg/dL Creatinine 0.74 (0.5-1.4) mg/dL Estim Creat Clear Calc 120.7 Estimated GFR > 60 Random Glucose 103 (60-115) mg/dL Lactic Acid (0.5-2.0) mmol/L Calcium 9.0 (8.4-10.2) mg/dL Magnesium 2.2 (1.6-2.6) mg/dL Total Bilirubin 0.5 (0.0-1.0) mg/dL Direct Bilirubin 0.3 (0.0-0.5) mg/dL AST 15 (5-37) U/L ALT 12 (0-40) U/L Alkaline Phosphatase 72 (39-117) U/L Total Protein 6.9 (6.5-8.0) g/dL Albumin 4.0 (3.5-5.0) g/dL Lipase 22 (8-78) U/L COVID-19 (GIANNA) Negative (Negative) COVID-19 Clin Com See Note 09/07/21 Range/Units 07:48 WBC (4.8-10.8) X10*3/uL RBC (4.60-5.80) X10*6/uL Hgb (14.0-18.0) g/dl Hct (42.0-52.0) % MCV (80.0-98.0) fL MCH (27.0-33.0) pg MCHC (31.0-36.0) g/dl RDW (11.0-16.0) % Plt Count (160-400) X10*3/uL MPV (9.4-12.4) fL Immature Gran % (Auto) (0.0-0.4) % Neut % (Auto) (45-73) % Lymph % (Auto) (20-40) % [place] % (Auto) (2-11) % Eos % (Auto) (0-4) % Baso % (Auto) (0-2) % Lymph # (Auto) (1.2-4.9) X10*3/uL [place] # (Auto) (0.1-1.2) X10*3/uL Eos # (Auto) (0.0-0.4) X10*3/uL Baso # (Auto) (0.0-0.2) X10*3/uL Abs Immat Gran (auto) (0.00-0.03) X10*3/uL Absolute Neuts (auto) (2.0-8.3) x10*3/uL Absolute Nucleated RBC (0.0-0.012) X10*3/uL Nucleated RBC % (auto) (0.0-0.2) /100WBC Sodium (135-145) mmol/L Potassium (3.3-5.1) mmol/L Chloride (96-108) mmol/L Carbon Dioxide (22-29) mmol/L Anion Gap (12-20) BUN (9-16) mg/dL Creatinine (0.5-1.4) mg/dL Estim Creat Clear Calc Estimated GFR Random Glucose (60-115) mg/dL Lactic Acid 0.8 (0.5-2.0) mmol/L Calcium (8.4-10.2) mg/dL Magnesium (1.6-2.6) mg/dL Total Bilirubin (0.0-1.0) mg/dL Direct Bilirubin (0.0-0.5) mg/dL AST (5-37) U/L ALT (0-40) U/L Alkaline Phosphatase (39-117) U/L Total Protein (6.5-8.0) g/dL Albumin (3.5-5.0) g/dL Lipase (8-78) U/L COVID-19 (GIANNA) (Negative) COVID-19 Clin Com Discharge Plan Discharge Clinical Impression: Mendy-rectal abscess Patient Disposition: Admitted As Inpatient Prescriptions: No Action amlodipine 5 mg tablet 5 mg PO DAILY Qty: 30 0RF ibuprofen 800 mg tablet 800 mg PO Q8H PRN (Reason: pain) Qty: 14 0RF doxycycline monohydrate 100 mg capsule 100 mg PO BID 10 Days Qty: 20 0RF cephalexin 500 mg capsule 500 mg PO BID 10 Days Qty: 20 0RF erythromycin 5 mg/gram (0.5 %) ointment 0.5 inch ophthalmic (eye) TID Qty: 3.5 0RF amoxicillin-pot clavulanate [Augmentin] 875-125 mg tablet 1 tab PO Q12H 7 Days Qty: 14 0RF erythromycin 5 mg/gram (0.5 %) ointment 1 appl ophthalmic-Right QID 7 Days Qty: 3.5 0RF cetirizine [Zyrtec] 10 mg tablet 10 mg PO DAILY PRN (Reason: allergy symptoms) Qty: 10 0RF amlodipine 5 mg tablet 5 mg PO DAILY Qty: 30 0RF oxycodone-acetaminophen 5-325 mg tablet 1 tab PO PRN hydrocodone-acetaminophen 5-325 mg tablet 1 tab PO Q12H PRN (Reason: pain (scale score 4-6)) 7 Days Qty: 14 0RF ketorolac 10 mg tablet 10 mg PO Q6H PRN
[2021-09-07 07:55] LABS: MANUAL DIFF FLAG NO
[2021-09-07 07:58] LABS: Basophils Percent Auto 0.3 % (0-2); Eosinophils Percent Auto 0.3 % (0-4); Hematocrit 46.3 % (42.0-52.0); Hemoglobin 15.3 g/dl (14.0-18.0); Imm Gran Abs Auto 0.07 X10*3/uL (0.00-0.03); Imm Gran Pct Auto 0.5 % (0.0-0.4); Lymphocytes Percent Auto 7.3 % (20-40); Mean Corpuscular Hemoglobin 32.9 pg (27.0-33.0); Mean Corpuscular Volume 99.6 fL (80.0-98.0); Mean Platelet Volume 9.4 fL (9.4-12.4); Monocytes Absolute Auto 0.9 X10*3/uL (0.1-1.2); Neutrophils Absolute Auto 11.2 x10*3/uL (2.0-8.3); Neutrophils Percent Auto 84.6 % (45-73); Platelet Count 251 X10*3/uL (160-400); Red Blood Count 4.65 X10*6/uL (4.60-5.80); Red Cell Distribution Width 13.2 % (11.0-16.0); White Blood Count 13.2 X10*3/uL (4.8-10.8)
[2021-09-07 08:06] LABS: Lactic Acid 0.8 mmol/L (0.5-2.0)
[2021-09-07 08:12] LABS: Alanine Aminotransferase 12 U/L (0-40); Alkaline Phosphatase 72 U/L (39-117); Anion Gap 13 (12-20); Aspartate Amino Transferase 15 U/L (5-37); Bilirubin Direct 0.3 mg/dL (0.0-0.5); Bilirubin Total 0.5 mg/dL (0.0-1.0); Blood Urea Nitrogen 11 mg/dL (9-16); Carbon Dioxide 23 mmol/L (22-29); Chloride 108 mmol/L (96-108); Creatinine Clr Calc Pharmacy 120.7; Estimated Glomerular Filt Rate > 60; Glucose Random 103 mg/dL (60-115); Lipase 22 U/L (8-78); Magnesium 2.2 mg/dL (1.6-2.6); Potassium 4.2 mmol/L (3.3-5.1); Sodium 140 mmol/L (135-145); Total Protein 6.9 g/dL (6.5-8.0)
[2021-09-07 08:15] LABS: COVID-19 Test Negative (Negative); IDNOW Serial# 08D9AD1C
[2021-09-07] MEDS: Morphine Sulfate 4 MG/ML CARTRIDGE IVPUSH (08:17)
[2021-09-07] MEDS: ondansetron HCL 4 MG/2 ML VIAL IVPUSH (08:17)
[2021-09-07] MEDS: 0.9 % Sodium Chloride 1,000 ML 999 ML IVCONT (08:18)
[2021-09-07] MEDS: Lidocaine HCl 1 % MPF 5 ML VIAL SUBCUT (08:18)
[2021-09-07] MEDS: Piperacillin Sodium/Tazobactam 3.375 GM in 0.9 % Sodium Chloride 50 ML IV (08:18)
[2021-09-07] MEDS: iohexoL 350 MG/ML 100 ML INFUS..BTL IV (08:39)
--- NOTE | 2021-09-07 11:32 | PC.NURSE ---
pt seen by dr. torres, pt to have surgery this afternoon per dr. torres. pt aware of plan of care.
--- NOTE | 2021-09-07 11:41 | PM.HPGS ---
History of Present Illness History of Present Illness Date of Service: 09/10/21 Chief complaint: Perirectal abscess Narrative: Navneet Ohara is a 50 year old male who says that he has had pain in the anus for about 3-4 days now. He says that this has been progressively getting worse. He says he has not been able to sleep the past 2 days because of the pain. The pain is worse as well with bowel movements. He denies any fever or chills. He denies any bleeding per rectum He denies any previous episode of a rectal abscess. Review of Systems Constitutional: Constitutional: Denies chills and Denies fever(s) Cardiovascular: Cardiovascular: Denies chest pain, Denies dyspnea and Denies dyspnea on exertion Respiratory: Respiratory: Denies cough, Denies dyspnea and Denies dyspnea on exertion Gastrointestinal: Gastrointestinal: Denies hematochezia and Denies change in bowel habits Genitourinary: Genitourinary: Denies hematuria and Denies difficulty urinating Musculoskeletal: Musculoskeletal: Denies back pain and Denies limited range of motion Neurologic: Denies focal weakness and Denies convulsions Psychiatric: Psychiatric: Denies depression and Denies mood swings [facility] Past Medical History Medical History HTN (hypertension) Smoking 1/2 pack a day or less Social History Social History Alcohol intake: current Alcohol intake frequency: other Alcohol type: beer Patient Tobacco Use Status: Current everyday Tobacco user Tobacco use type: Cigarette Cigarettes Per Day: 10 Use of substances other than those prescribed or required for medical reasons: Yes Substance Use Type: Marijuana Substance Use Frequency: Daily Are you DNR?: No Advance Directives: No Advance Directives Information Provided: No (declined) Advance Directives on File: No Current occupation: right handed. Meds Allergies Allergy/AdvReac Type Severity Reaction Status Date / Time No Known Allergies Allergy Verified 09/07/21 05:50 [No Known Allergies*] Physical Exam Vital Signs: Vital Signs: Last Vital Signs Temp 97.8 F 09/07/21 07:00 Pulse 58 09/07/21 09:40 Resp 14 09/07/21 09:40 BP 161/94 H 09/07/21 09:40 Pulse Ox 96 09/07/21 09:40 O2 Del Method 09/07/21 09:40 BMI result Body Mass Index 24.9 Const: General: comfortable and no acute distress Orientation/consciousness: patient oriented x3 Neck: Neck: Yes no lymphadenopathy Resp: Auscultation: clear to auscultation bilaterally Cardio: Rhythm: regular rhythm GI: Other: rectal exam - very tender wide area ofinduration on the left perianal area, no fluctuance, no active drainage Palpation (GI): Soft to palpation, nontender and no guarding Neuro: General: patient oriented x3 Results Results Labs: Short CBC 09/07/21 Range/Units 07:48 WBC 13.2 H (4.8-10.8) X10*3/uL Hgb 15.3 (14.0-18.0) g/dl Hct 46.3 (42.0-52.0) % Plt Count 251 (160-400) X10*3/uL BMP 09/07/21 07:48 Sodium 140 Potassium 4.2 Chloride 108 Carbon Dioxide 23 BUN 11 Creatinine 0.74 Calcium 9.0 Liver Function 09/07/21 Range/Units 07:48 Total Bilirubin 0.5 (0.0-1.0) mg/dL Direct Bilirubin 0.3 (0.0-0.5) mg/dL AST 15 (5-37) U/L ALT 12 (0-40) U/L Alkaline Phosphatase 72 (39-117) U/L Albumin 4.0 (3.5-5.0) g/dL Additional studies: Laboratory Results WBC 13.2 X10*3/uL (4.8-10.8) H 09/07/21 07:48 RBC 4.65 X10*6/uL (4.60-5.80) 09/07/21 07:48 Hgb 15.3 g/dl (14.0-18.0) 09/07/21 07:48 Hct 46.3 % (42.0-52.0) 09/07/21 07:48 MCV 99.6 fL (80.0-98.0) H 09/07/21 07:48 MCH 32.9 pg (27.0-33.0) 09/07/21 07:48 MCHC 33.0 g/dl (31.0-36.0) 09/07/21 07:48 RDW 13.2 % (11.0-16.0) 09/07/21 07:48 Plt Count 251 X10*3/uL (160-400) 09/07/21 07:48 MPV 9.4 fL (9.4-12.4) 09/07/21 07:48 Immature Gran % (Auto) 0.5 % (0.0-0.4) H 09/07/21 07:48 Neut % (Auto) 84.6 % (45-73) H 09/07/21 07:48 Lymph % (Auto) 7.3 % (20-40) L 09/07/21 07:48 [place] % (Auto) 7.0 % (2-11) 09/07/21 07:48 Eos % (Auto) 0.3 % (0-4) 09/07/21 07:48 Baso % (Auto) 0.3 % (0-2) 09/07/21 07:48 Lymph # (Auto) 1.0 X10*3/uL (1.2-4.9) L 09/07/21 07:48 [place] # (Auto) 0.9 X10*3/uL (0.1-1.2) 09/07/21 07:48 Eos # (Auto) 0.0 X10*3/uL (0.0-0.4) 09/07/21 07:48 Baso # (Auto) 0.0 X10*3/uL (0.0-0.2) 09/07/21 07:48 Abs Immat Gran (auto) 0.07 X10*3/uL (0.00-0.03) H 09/07/21 07:48 Absolute Neuts (auto) 11.2 x10*3/uL (2.0-8.3) H 09/07/21 07:48 Absolute Nucleated RBC 0.000 X10*3/uL (0.0-0.012) 09/07/21 07:48 Nucleated RBC % (auto) 0.0 /100WBC (0.0-0.2) 09/07/21 07:48 Sodium 140 mmol/L (135-145) 09/07/21 07:48 Potassium 4.2 mmol/L (3.3-5.1) 09/07/21 07:48 Chloride 108 mmol/L (96-108) 09/07/21 07:48 Carbon Dioxide 23 mmol/L (22-29) 09/07/21 07:48 Anion Gap 13 (12-20) 09/07/21 07:48 BUN 11 mg/dL (9-16) 09/07/21 07:48 Creatinine 0.74 mg/dL (0.5-1.4) 09/07/21 07:48 Estim Creat Clear Calc 120.7 09/07/21 07:48 Estimated GFR > 60 09/07/21 07:48 Random Glucose 103 mg/dL (60-115) 09/07/21 07:48 Lactic Acid 0.8 mmol/L (0.5-2.0) 09/07/21 07:48 Calcium 9.0 mg/dL (8.4-10.2) 09/07/21 07:48 Magnesium 2.2 mg/dL (1.6-2.6) 09/07/21 07:48 Total Bilirubin 0.5 mg/dL (0.0-1.0) 09/07/21 07:48 Direct Bilirubin 0.3 mg/dL (0.0-0.5) 09/07/21 07:48 AST 15 U/L (5-37) 09/07/21 07:48 ALT 12 U/L (0-40) 09/07/21 07:48 Alkaline Phosphatase 72 U/L (39-117) 09/07/21 07:48 Total Protein 6.9 g/dL (6.5-8.0) 09/07/21 07:48 Albumin 4.0 g/dL (3.5-5.0) 09/07/21 07:48 Lipase 22 U/L (8-78) 09/07/21 07:48 COVID-19 (GIANNA) Negative (Negative) 09/07/21 07:48 COVID-19 Clin Com See Note 09/07/21 07:48 Impressions Abdomen/Pelvis CT 09/07/21 08:40 IMPRESSION: Approximately 3.7 x 3.6 x 3.2 cm structure contiguous with the anorectal confluence posteriorly toward the left, as detailed above. Differential diagnosis includes, but is not limited to, perirectal abscess. Recommend clinical correlation and follow-up to resolution after an appropriate course of therapy has been completed. Assessment and Plan (1) Mendy-rectal abscess: Status: Inactive He has had severe perianal pain for about 4 days now. He is scan shows a 3.7 x 3.6 x 3.2 cm abscess in the left the rectal area. I explained to him that we may need to proceed with exam under anesthesia and I&D in the OR. I reviewed with him the technique of this procedure. I explained the risks including but not limited bleeding, infections and postop pain, as well as the benefits and alternatives. He understands and wants to proceed He may need to stay overnight as well after the procedure depending on how he does. Quality Stroke Does the patient have a stroke diagnosis?: No VTE Prior VTE?: No VTE Risk Level:: Medical - low VTE Device Contraindication: N/A - Device Ordered VTE Drug Contraindication: Treatment Not Indicated Procedures Date of Service Date of Service: 09/07/21
--- NOTE | 2021-09-07 11:50 | PC.NURSE ---
rn to rn report given to joe abrams aware of plan of care for surgery this afternoon.
--- NOTE | 2021-09-07 11:55 | PC.NURSE ---
pt to the or with or tech via stretcher..
--- NOTE | 2021-09-07 12:43 | HO.ANESPROP2 ---
HPI - Anesthesia Eval Consult details Narrative: perirectal abscess PMFSH Active Problems Active Problems: All Active Problems (Updated 09/07/21 @ 09:21 by Nieves Cruz DO) Mendy-rectal abscess (Acute) S/P ORIF (open reduction internal fixation) fracture (Acute) Right clavicle fracture (Acute) Clavicle pain (Acute) Past Medical History Medical History HTN (hypertension) Smoking 1/2 pack a day or less Family History Family history of problems with anesthesia: No Surgical History History of Problems with Anesthesia: No Social History Social History Alcohol intake: current Alcohol intake frequency: other Alcohol type: beer Patient Tobacco Use Status: Current everyday Tobacco user Tobacco use type: Cigarette Cigarettes Per Day: 10 Use of substances other than those prescribed or required for medical reasons: Yes Substance Use Type: Marijuana Substance Use Frequency: Daily Are you DNR?: No Advance Directives: No Advance Directives Information Provided: No (declined) Advance Directives on File: No Current occupation: right handed. Meds Allergies Allergy/AdvReac Type Severity Reaction Status Date / Time No Known Allergies Allergy Verified 09/07/21 05:50 [No Known Allergies*] Active Medications: Current Medications Sodium Chloride (Ns) 1,000 mls @ 100 mls/hr IVCONT .Q10H LOLLY Ondansetron HCl (Ondansetron Hcl 4 Mg/2 Ml Vial) 4 mg IVPUSH Q8H PRN PRN Reason: Nausea and Vomiting Sodium Chloride (0.9 % Sodium Chloride Flush 3 Ml Syringe) 3 ml IVFLUSH QSHIFT LOLLY Home Medications Medication Instructions Recorded Confirmed Last Taken Type oxycodone-acetaminophen 5 mg-325 1 tab PO PRN 07/27/20 Unknown History mg tablet ketorolac 10 mg tablet 10 mg PO Q6H PRN 08/24/20 Unknown History Exam Exam Date and Time: September 07, 2021 1243 Height,Weight and Vital Signs: Height 5 ft 9 in Weight 76.657 kg Last Vital Signs Temp 98.6 F 09/07/21 12:08 Pulse 82 09/07/21 12:08 Resp 16 09/07/21 12:08 BP 163/104 H 09/07/21 12:08 Pulse Ox 95 09/07/21 12:08 O2 Del Method 09/07/21 12:08 Pertinent Lab Results Pertinent Lab Results: Laboratory Tests 09/07/21 09/07/21 09/07/21 07:48 07:48 07:48 WBC 13.2 H RBC 4.65 Hgb 15.3 Hct 46.3 MCV 99.6 H MCH 32.9 MCHC 33.0 RDW 13.2 Plt Count 251 MPV 9.4 Immature Gran % (Auto) 0.5 H Neut % (Auto) 84.6 H Lymph % (Auto) 7.3 L Woodward % (Auto) 7.0 Eos % (Auto) 0.3 Baso % (Auto) 0.3 Lymph # (Auto) 1.0 L Woodward # (Auto) 0.9 Eos # (Auto) 0.0 Baso # (Auto) 0.0 Abs Immat Gran (auto) 0.07 H Absolute Neuts (auto) 11.2 H Absolute Nucleated RBC 0.000 Nucleated RBC % (auto) 0.0 Sodium 140 Potassium 4.2 Chloride 108 Carbon Dioxide 23 Anion Gap 13 BUN 11 Creatinine 0.74 Estim Creat Clear Calc 120.7 Estimated GFR > 60 Random Glucose 103 Lactic Acid Calcium 9.0 Magnesium 2.2 Total Bilirubin 0.5 Direct Bilirubin 0.3 AST 15 ALT 12 Alkaline Phosphatase 72 Total Protein 6.9 Albumin 4.0 Lipase 22 COVID-19 (GIANNA) Negative COVID-19 Clin Com See Note 09/07/21 07:48 WBC RBC Hgb Hct MCV MCH MCHC RDW Plt Count MPV Immature Gran % (Auto) Neut % (Auto) Lymph % (Auto) Woodward % (Auto) Eos % (Auto) Baso % (Auto) Lymph # (Auto) Woodward # (Auto) Eos # (Auto) Baso # (Auto) Abs Immat Gran (auto) Absolute Neuts (auto) Absolute Nucleated RBC Nucleated RBC % (auto) Sodium Potassium Chloride Carbon Dioxide Anion Gap BUN Creatinine Estim Creat Clear Calc Estimated GFR Random Glucose Lactic Acid 0.8 Calcium Magnesium Total Bilirubin Direct Bilirubin AST ALT Alkaline Phosphatase Total Protein Albumin Lipase COVID-19 (GIANNA) COVID-19 Clin Com Airway Mallampati Class: I TM Dist: >3cm Neck ROM: Full Loose/Missing/Broken Teeth: Yes and Upper Heart: ok Lungs: ok Assessment and Plan Final Anesthetic Review Family History of Problems with Anesthesia: No History of Problems with Anesthesia: No NPO: Yes ASA Class: II Final Preanesthetic Review: No Changes in Pt Med Stat, Meds/Allgs Chart Reviewed, Consent Obtained/Reviewed and Anes Risks/Benef Reviewed Patient Risk: Intermediate Procedure Risk: Intermediate Anesthetic Plan Anesthetic Plan: GA and Agree w/ Assess. and Plan Disposition: Standard PACU
--- NOTE | 2021-09-07 13:50 | W.PM.OPN ---
Operative Note Operative Note Date of Service: 09/07/21 Narrative: Preop diagnosis: perirectal abscess Postop diagnsosi: perirectal abscess, anal fistula Procedure: Exam under anesthesia, I and D of perirectal abscess, placement of seton Surgeon: Eduin Ohara MD The patient is a 50M who came to the ED because of severe perianal pain. His CT scan showed a large perirectal abscess on the left. I explained to him the benefit of EUA, I and D and possible Seton placement. I reviewed the risks, benefits and alternatives and he had given consent. He was brought to the OR and placed in prone jackknife position under general anesthesia via ET tube. The buttocks were retracted with wide tape laterally. The perianal area was prepped and draped in the usual sterile fashion. A surgical timeout was done. The patient received Cefotan preop.. Examination of the perianal area revealed a large induration on the left verge. I inserted the Celestine Fermin retractor and examined the anal canal circumferentially. There was not of an internal fistulous opening at the dentate line on left. This was draining pus. I mad an incision on the skin overlying the induration using a blade 15. I immediately entered an abscess cavity with large amounts of pus evacuated. Cultures were taken. I passed a probe through the incision into the cavity and easily advanced this through the internal fistulous opening. I passed a yellow vessel loop through the tract and closed the loop with a silk 2-0 tie. This was therefore our seton. Once the cavity was drained completely, I infiltrated the area with marcaine .75% for postop analgesia. The procedure tolerated the procedure well. There were no immediate complications. EBL was about 20 cc. The patient was extubated without difficulty and transferred to the RR with stable VS.
[2021-09-07] MEDS: oxyCODONE HCl Immed Release 5 MG TABLET 10 MG PO (13:55)
[2021-09-07] MEDS: HYDROmorphone HCl 0.5 MG/0.5 ML SYRINGE IVPUSH (14:05)
== END 2021-09-07 15:15 | disposition home or self-care (01) ==
LOC: HO.ED 11:29 → HO.EDOVER 13:39 → HO.SSS 09-08 08:34
PROVIDERS: Emergency Provider Emergency Medicine; PCP Internal Medicine; Visit Provider Surgery
PROC: (CPT 46040; principal; 2021-09-07 13:00)
DX: K61.1 Rectal abscess (principal); Z20.822 Contact with and (suspected) exposure to COVID-19; I10 Essential (primary) hypertension; F12.90 Cannabis use, unspecified, uncomplicated; F17.210 Nicotine dependence, cigarettes, uncomplicated; Z96.1 Presence of intraocular lens; Z79.899 Other long term (current) drug therapy
CPT/HCPCS: 46060; 36415; 74177; 80048; 80076; 83605; 83690; 83735; 85025; 87040; 87071; 87077; 87186; 87205; 87635; 96361; 96365; 96374; 96375; 99284; 99285; J1170; J2250; J2270; J2405; J2543; J3010; Q9967

== ENCOUNTER 2023-06-16 08:47 | Emergency (ER) | payer OTHER, SELFPAY ==
--- NOTE | ~2023-06-16 | XR_ITS ---
EXAMINATION: XR LUMBOSACRAL SPINE CLINICAL INFORMATION: Pain after fall COMPARISON: 09/07/2021 TECHNIQUE: Three views of the lumbosacral spine. FINDINGS: 5 lumbar type vertebral bodies are identified. Since the previous August 2021 study, anterior superior moderate compression deformity of L1 has developed. There is mild anterolisthesis L5 on S1 which was not appreciated on previous 2021 study. Pedicles and SI joints within normal limits. No hip narrowings. XR/XR lumbar spine 2-3V IMPRESSION: Interval L1 compression deformity. Interval mild anterolisthesis L5 on S1. Acute posttraumatic injuries not excluded. MRI recommended.
--- NOTE | ~2023-06-16 | CT_ITS ---
EXAMINATION: CT LUMBAR SPINE WITHOUT CONTRAST CLINICAL INFORMATION: Fall. Pain. COMPARISON: Lumbar spine radiographs from 06/16/2023. CT abdomen and pelvis from 09/07/2021. TECHNIQUE: Multidetector helical imaging of the lumbar spine was obtained without intravenous contrast. Multiple axial reformats and coronal/sagittal reconstructions were created the technologist workstation for review. This CT examination was performed using dose optimization techniques as appropriate, variously including the following: *Automated exposure control. *Adjustment of mA and/or kV according to patient size (this includes techniques or standardized protocols for targeted exams where dose is matched to indication/reason for exam; i.e. extremities or head). *Use of iterative reconstruction technique. DLP: 411 mGy-cm FINDINGS: Normal anatomic alignment. Compression deformity of the superior endplate of L1 with 25% loss of anterior body height. Associated fracture lucency extending through the upper anterior cortex of the L1 vertebral body. No evidence of additional acute fracture or traumatic subluxation. The remaining vertebral body heights are maintained. Mild degenerative disc disease from T12-L3. The remaining intervertebral disc spaces are maintained. No suspicious lytic or sclerotic osseous lesions. Mild soft tissue edema is inferior to T12-L1. No additional significant abnormalities of the paraspinal musculature. Moderate distention of the urinary bladder. Limited evaluation of the intra-abdominal structures without significant abnormalities. The abdominal aorta is of normal contour and caliber with moderate calcific atherosclerotic disease. AXIAL SPINAL LEVELS: T12-L1: Mild diffuse disc bulge with posterior osseous ridging. There is mild bilateral facet joint arthropathy. There is no neural foraminal stenosis. There is no demonstrated spinal canal stenosis. L1-L2: Mild diffuse disc bulge. There is mild bilateral facet joint arthropathy. There is no neural foraminal stenosis. There is no demonstrated spinal canal stenosis. L2-L3: Moderate diffuse disc bulge. There is mild to moderate bilateral facet joint arthropathy. There is mild bilateral neural foraminal stenosis. There appears to be mild spinal canal stenosis. L3-L4: Mild diffuse disc bulge. There is moderate bilateral facet joint arthropathy. There is mild bilateral neural foraminal stenosis. There is no demonstrated spinal canal stenosis. L4-L5: Mild diffuse disc bulge. There is moderate left and mild right facet joint arthropathy. There is mild bilateral neural foraminal stenosis. There is no demonstrated spinal canal stenosis. L5-S1: Mild diffuse disc bulge. There is severe left and mild to moderate facet joint arthropathy. There is mild bilateral neural foraminal stenosis. There is no demonstrated spinal canal stenosis. CT/CT lumbar spine wo IV con IMPRESSION: 1. Compression fracture of the superior endplate of L1 with 25% loss of anterior body height. 2. No evidence of additional acute fracture or traumatic subluxation of the lumbar spine. 3. Moderate multilevel degenerative spondyloarthropathy of the lumbar spine as described in detail above. Most notably on this limited exam without intrathecal contrast, there appears to be mild spinal canal stenosis at L2-L3. Mild neural foraminal narrowings from L2-S1. 4. Moderate distention of the urinary bladder.
[2023-06-16 09:26] VITALS: BP 159/94; PULSE 84; RESP 18; TEMP 36.7; O2SAT 95; BMI 23.6
--- NOTE | 2023-06-16 10:51 | ED.BACK ---
HPI - Back Pain/Injury General Chief Complaint: Back Pain/Injury Stated Complaint: Low Back Pain Fall 06/16/23 Time Seen by Provider: 06/16/23 10:33 Source: patient Mode of arrival: ambulatory Limitations: no limitations History of Present Illness HPI Narrative: Patient is a 52-year-old male presents emergency department for evaluation of diffuse lower back pain. Reports that when attempting to open his bedroom door last night he tripped on his sandal resulting in a fall backwards landing on his buttock. Denies any head strike or loss of consciousness. Has pain primarily to the right lower back radiating into the buttock. Denies recent fevers, chills, burning with micturition, urinary frequency/urgency/hesitancy, bladder or bowel dysfunction, numbness or tingling of the perineum or bilateral legs. Denies any recent surgical procedures, any known immune compromising conditions, personal history of cancer, or IV drug usage. MD elicited complaint: back pain Related Data Previous Rx's ?Medication ?Instructions ?Recorded amlodipine 5 mg tablet 5 mg PO DAILY #30 tabs 01/24/21 amoxicillin 875 mg-potassium 1 tab PO BID #14 tabs 09/07/21 clavulanate 125 mg tablet oxycodone-acetaminophen 5 mg-325 1 tab PO Q4-6H PRN pain #30 tabs 09/07/21 mg tablet (Percocet) ibuprofen 600 mg tablet 600 mg PO Q6H PRN for pain #30 tabs 09/28/21 cyclobenzaprine 10 mg tablet 10 mg PO TID PRN muscle spasm #14 06/16/23 tabs Allergies Allergy/AdvReac Type Severity Reaction Status Date / Time No Known Allergies Allergy Verified 06/16/23 09:30 [No Known Allergies*] Review of Systems Review of Systems: Yes all other systems are reviewed and are negative PMFSH Past Medical History Attestation statement: The following information was validated with the patient. Source: old records reviewed Medical History Smoking 1/2 pack a day or less HTN (hypertension) Social History Social History Alcohol intake: current Alcohol intake frequency: other Alcohol type: beer Patient Tobacco Use Status: Current everyday Tobacco user Tobacco use type: Cigarette Cigarettes Per Day: 10 Substance Use Type: Marijuana Advance Directives: No Advance Directives Information Provided: No Current occupation: right handed. Physical Exam Vital Signs: Vital Signs: Last Vital Signs Temp 98.9 F 06/16/23 17:34 Pulse 69 06/16/23 17:34 Resp 20 06/16/23 17:34 BP 173/89 H 06/16/23 17:34 Pulse Ox 95 06/16/23 17:34 O2 Del Method Room Air 06/16/23 17:34 BMI result Body Mass Index 23.6 Appearance: Alert.?Oriented to person, place and time. No acute distress.?Normal affect. Eyes: Pupils equal, round and reactive to light.? ENT: Pharynx normal.?? Neck: Normal inspection.? Neck supple.?? CVS: Heart sounds normal. Normal heart rate and rhythm.? Pulses normal; bilateral radial pulses 2+, bilateral posterior tibial/dorsalis pedis pulses 2+.? Respiratory: No respiratory distress.? Lung sounds clear to auscultation bilaterally?? Abdomen: Soft and non-tender. Normoactive bowel sounds. No pulsatile mass.?? Skin: Skin warm and dry.? Normal skin color.? Normal skin turgor.?? Extremities: No lower extremity edema.? No calf ttp? Back: + mild paraspinal muscular tenderness from lumbar region to coccyx. No CVA tenderness. No midline spinal tenderness, step-off's, or deformity. Full ROM intact in bilateral lower extremities. Straight leg test negative on right; Straight leg test negative on left. No rashes, lesions, areas of induration or fluctuance, or signs of infection noted., Neuro: Moves all extremities spontaneously. 5/5 strength in hip extension/flexion, abduction, adduction. Sensation to light touch intact bilaterally. Patellar and Achilles reflex 2+ bilaterally. No ataxia, gait normal and steady.. No focal neuro deficits. Course Reevaluation(s) Reevaluation #1: XR reveals anterior superior moderate compression deformity of L1, with recommendation for MRI per radiologist. He has no neurological deficits on examination. I reviewed this XR and image with ED attending, Dr. Coppola. he does not feel as though emergent MRI is indicated at this time. Will however obtain CT of the lumbar spine to further evaluate is deformity and assess for any retropulsion. Patient to be medicated with Toradol IM and cyclobenzaprine at this time. Updated on plan of care and is agreeable. Time: 14:36 Reevaluation #2: CT/CT lumbar spine wo IV con IMPRESSION: 1. Compression fracture of the superior endplate of L1 with 25% loss of anterior body height. 2. No evidence of additional acute fracture or traumatic subluxation of the lumbar spine. 3. Moderate multilevel degenerative spondyloarthropathy of the lumbar spine as described in detail above. Most notably on this limited exam without intrathecal contrast, there appears to be mild spinal canal stenosis at L2-L3. Mild neural foraminal narrowings from L2-S1. 4. Moderate distention of the urinary bladder. Patient was made aware of these findings, and exam has no neurological deficits, No signs of cauda equina syndrome. Had relief pain from Toradol and cyclobenzaprine. Advised outpatient follow-up primary care provider. Worrisome signs and symptoms that would warrant re-evaluation in the emergency department. All questions answered. Stable for discharge. Time: 17:27 Medications Administered Discontinued Medications Generic Name Dose Route Start Last Admin Trade Name Freq PRN Reason Stop Dose Admin Cyclobenzaprine HCl 10 mg 06/16/23 14:34 06/16/23 14:40 Cyclobenzaprine Hcl 10 Mg Tablet PO 06/16/23 14:35 10 mg ONCE ONE Administration Ketorolac Tromethamine 30 mg 06/16/23 14:34 06/16/23 14:40 Ketorolac Tromethamine 30 Mg/Ml Vial IM 06/16/23 14:35 30 mg ONCE ONE Administration Medical Decision Making Medical Decision Making MDM Narrative: patient is a 52-year-old male who presents emergency department for evaluation of traumatic low back pain as per HPI. Physical examination is overall benign, no midline spinal tenderness, step-offs, deformities. No focal neurological deficits. XR obtained to exclude fracture /subluxation, Revealing an L1 deformity with recommendation for further imaging. At this time suspect that Pain is most consistent with muscular pain, although cannot completely exclude herniated disc. Not consistent with spinal fracture, spinal infection, epidural abscess, AAA, epidural abscess, or dissection. No high risk past medical history including incontinence, fever, immunosuppression, recent surgery or lumbar puncture, coagulopathy, significant trauma, recent unintentional weight loss, pulsatile mass, history of cancer, history of TB, history of IV drug use.Not consistent with pyelonephritis, urinary tract infection, renal calculi, appendicitis, diverticulitis. On exam no concern for cauda equina syndrome. Differential Diagnosis Differential Diagnoses: The differential diagnosis associated with the presentation includes ( see narrative above) Admission/Observation Consideration of admission/observation: Escalation of care including admission/observation considered ( see narrative above) Independent Interpretation I performed an independent interpretation of an: Plain X-Ray ( no acute fracture) Radiology Impression Discussion of test interpretation with radiology: I have reviewed the radiologist's reading. Radiologist Impression: XR/XR lumbar spine 2-3V IMPRESSION: Interval L1 compression deformity. Interval mild anterolisthesis L5 on S1. Acute posttraumatic injuries not excluded. MRI recommended. External Record Review External record reviewed: Outpatient record Prescription Management I considered prescription management with: Pain Medication ( NSAIDs/acetaminophen/ skeletal muscle relaxant) Discharge Plan Discharge Clinical Impression: Closed compression fracture of L1 vertebra, Spondyloarthropathy Patient Disposition: Home, Self-Care Instructions: Osteoarthritis (ED) Additional Instructions: You can take ibuprofen 200 mg, 3 tablets (600mg) every 6-8 hours as needed for pain, in addition to Tylenol 500 mg, 2 tablets (1,000mg) every 4-6 hours as needed for pain, but not to exceed 3 doses daily (3,000mg).? a prescription for cyclobenzaprine / Flexeril was sent to your pharmacy. This is a muscle relaxant. It may make you drowsy. You should not drive, drink alcohol, or work while taking this medication. Contact your primary care provider to arrange for a follow-up visit. you may return back to emergency department any new or worsening symptoms or concerns. Prescriptions: New cyclobenzaprine 10 mg tablet 10 mg PO TID PRN (Reason: muscle spasm) Qty: 14 0RF No Action ibuprofen 600 mg tablet 600 mg PO Q6H PRN (Reason: for pain) Qty: 30 0RF amlodipine 5 mg tablet 5 mg PO DAILY Qty: 30 0RF oxycodone-acetaminophen [Percocet] 5-325 mg tablet 1 tab PO Q4-6H PRN (Reason: pain) Qty: 30 0RF Rx Instructions: Partial Fill upon patient request. amoxicillin-pot clavulanate 875-125 mg tablet 1 tab PO BID Qty: 14 0RF Referrals: Eduin Lerner MD [Primary Care Provider] - Stand Alone Forms: Work/School Release Interventions: ED Discharge Assessment Last Done: 06/16/23 17:34 Discharge Date/Time: 06/16/23 17:35 Print Language: Upper Sorbian
[2023-06-16 14:38] VITALS: BP 199/102; PULSE 69; RESP 20; TEMP 37.2; O2SAT 95
[2023-06-16] MEDS: Ketorolac Tromethamine 30 MG/ML VIAL IM (14:40)
[2023-06-16] MEDS: Cyclobenzaprine HCl 10 MG TABLET PO (14:40)
[2023-06-16 15:40] VITALS: BP 173/89
[2023-06-16 17:34] VITALS: BP 173/89; PULSE 69; RESP 20; TEMP 37.2; O2SAT 95
== END 2023-06-16 17:35 | disposition home or self-care (01) ==
PROVIDERS: Emergency Provider Emergency Medicine; PCP Internal Medicine
DX: S32.019A Unspecified fracture of first lumbar vertebra, initial encounter for closed fracture (principal); M47.9 Spondylosis, unspecified; I10 Essential (primary) hypertension; W01.0XXA Fall on same level from slipping, tripping and stumbling without subsequent striking against object, initial encounter; Y93.9 Activity, unspecified; Y92.9 Unspecified place or not applicable; Y99.9 Unspecified external cause status
CPT/HCPCS: 72100; 72132; 96372; 99284; J1885